=== PATIENT | male | born 1965 | race Two or more races ===

== ENCOUNTER → 2016-09-13 | Outpatient (CLI) | payer BC ==
--- NOTE | 2016-09-14 10:34 | Diagnostic Imaging Report ---
Indications: Low back pain for months, increased in last 3 days, no trauma history Technique: Sagittal STIR, sagittal and axial T1 weighted fast spin-echo, coronal, sagittal, and axial T2 weighted fast spin echo sequences of the lumbar spine were performed without IV gadolinium administration. Findings: Comparison: None The L1-2 disc is normal in height and signal. No significant annular bulge/protrusion or marginal osteophyte formation. Facet joints and ligamenta flava are unremarkable. Spinal canal, lateral recesses and neural foramina are normal in caliber. The L2-3 disc is normal in height, decreased in signal except for focally increased signal at its midline posterior periphery. Mild circumferential annular bulge. Adjacent degenerative marrow signal change. Facet joints and ligamenta flava mildly hypertrophied. Spinal canalnarrowed to 8 mm AP diameter. Lateral recesses and neural foramina mildly narrowed bilaterally.. The L3-4 disc is normal in height and signal. No significant annular bulge/protrusion or marginal osteophyte formation. Facet joints and ligamenta flava mildly hypertrophied.. Spinal canal, lateral recesses normal caliber. Neural foramina mildly narrowed bilaterally.. The L4-L5 disc is normal in height and signal. Mild circumferential annular bulge.. Facet joints and ligamenta flava are mildly hypertrophied.. Spinal canal, lateral recesses normal caliber. Neural foramina mildly narrowed bilaterally.. The L5-S1 disc is normal in height, decreased in signal. Mild central posterior protrusion, 4-5 mm AP diameter.. Adjacent degenerative marrow signal change. Facet joints and ligamenta flava are mildly hypertrophied.. Spinal canal, lateral recesses normal caliber. Neural foramina mildly narrowed bilaterally.. Spinal cord ends at T12-L1. Conus medullaris, cauda equina, remainder of thecal sac contents intrinsically unremarkable. No intradural or extradural masses or fluid collections are demonstrated. The lumbar vertebrae are normal in configuration and marrow signal characteristics , aside from degenerative changes described above and small circumscribed focus of fat signal in L2 vertebral body.. No fracture, lytic destruction, or other acute process is demonstrated. Paraspinous soft tissues are unremarkable. IMPRESSION: Altered level mild degenerative disc disease, facet and ligamentous hypertrophy as described in detail level by level above. Associated suggestion of grade 3 annular fissure at posterior margin of L2-3 disc. Mild spinal stenosis at L2-3 Multilevel mild neural foraminal narrowing as described, without obvious neural impingement Small hemangioma L2 vertebral body
== END | disposition home or self-care (01) ==
LOC: RAD 16:57
DX: M54.5 Low back pain (principal); M48.06 Spinal stenosis, lumbar region; M51.36 Other intervertebral disc degeneration, lumbar region; D18.09 Hemangioma of other sites
CPT/HCPCS: 72148

== ENCOUNTER → 2020-04-12 | Outpatient (CLI) | payer BC ==
--- NOTE | 2020-04-12 17:03 | Diagnostic Imaging Report ---
Indication: Chronic low back pain Technique: Sagittal T1 and T2 fast spin echo, sagittal STIR, axial T1 and T2 fast spin-echo images of the lumbar spine Comparison: 09/13/2016 Findings: Bony alignment is normal. Vertebral body heights are preserved. Vertebral marrow signal is normal. There is mild multilevel disc desiccation. Disc spaces are preserved. Conus medullaris terminates at the L1 level. At L2-3, there is very mild circumferential annular bulge as well as a posterior disc high intensity zone. This does not significantly compromise the spinal canal or neural foramina. At L3-4, there is minimal circumferential annular bulge. This in combination with ligamentum flavum and facet hypertrophy results in borderline narrowing of the spinal canal. No significant neural foraminal compromise. At L5-S1, there is central posterior disc protrusion with a high intensity zone. This does not result in any significant compromise of the spinal canal or the neural foramina. There is mild lipomatosis of the sacral spinal canal At the remaining disc levels, no significant disc bulge or protrusion, spinal stenosis, or neural foraminal stenosis. Findings are unchanged from prior study of 09/13/2016 Included extraspinal soft tissues are unremarkable Impression: Mild multilevel degenerative changes, as detailed on a level by level basis above. No acute abnormality
== END | disposition home or self-care (01) ==
LOC: MRI 13:15
DX: M54.5 Low back pain (principal); G89.29 Other chronic pain; M51.27 Other intervertebral disc displacement, lumbosacral region; E88.2 Lipomatosis, not elsewhere classified
CPT/HCPCS: 72148